=== PATIENT | female | born 1935 | race Two or more races ===

== ENCOUNTER 2023-07-01 12:27 | Inpatient (IN) | payer MEDICARE, OTHER ==
[~2023-07-01] VITALS: Ht 160 cm; Wt 68.7 kg
[2023-07-01] MEDS ORDERED: NITROGLYCERIN OINT 1 GM PACKET TP ONE ×2 (12:45→13:00)
[2023-07-01] MEDS ORDERED: ASPIRIN 81 MG TAB.CHEW PO ONE (12:45)
[2023-07-01] MEDS ORDERED: ASPIRIN 81 MG TAB.CHEW ONE (13:00)
[2023-07-01] MEDS ORDERED: FERR325T28 PO (13:03)
[2023-07-01] MEDS ORDERED: ASPI81TA31 PO (13:03)
[2023-07-01] MEDS ORDERED: ALPR0.5T8 PO (13:03)
[2023-07-01] MEDS ORDERED: FURO-151 PO (13:03)
[2023-07-01] MEDS ORDERED: METO25TA6 PO (13:03)
[2023-07-01] MEDS ORDERED: DEXL60CA3 PO (13:03)
[2023-07-01] MEDS ORDERED: RANO10005 PO (13:03)
[2023-07-01] MEDS ORDERED: LOSA50TA39 PO (13:03)
[2023-07-01] MEDS ORDERED: METF-440 PO (13:03)
[2023-07-01] MEDS ORDERED: DAPA10TA PO (13:03)
[2023-07-01] MEDS ORDERED: ATOR40TA PO (13:03)
[2023-07-01] MEDS ORDERED: MEMA10TA PO (13:03)
[2023-07-01] MEDS ORDERED: CLOP75TA15 PO (13:03)
[2023-07-01 13:04] LABS: BASOPHILS % (AUTO) 0.3 % (0.0-2.0); EOSINOPHILS # (AUTO) 0.1 K/uL (0.0-0.7); EOSINOPHILS % (AUTO) 0.7 % (0.0-7.0); HEMATOCRIT 27.1 % (31.2-41.9); HEMOGLOBIN 9.1 g/dL (10.9-14.3); LYMPHOCYTES # (AUTO) 0.7 K/uL (0.8-4.8); LYMPHOCYTES % (AUTO) 4.7 % (20.5-51.5); MEAN CORPUSCULAR HEMOGLOBIN 31.6 uug (24.7-32.8); MEAN CORPUSCULAR HGB CONC 34 g/dL (32.3-35.6); MEAN CORPUSCULAR VOLUME 94.2 fL (75.5-95.3); MONOCYTES # (AUTO) 1.5 K/uL (0.1-1.30); MONOCYTES % (AUTO) 10.3 % (0.0-11.0); NEUTROPHILS # (AUTO) 12.4 K/uL (1.8-8.9); PLATELET COUNT (AUTO) 237 K/uL (179-408); RED BLOOD CELL COUNT(AUTO) 2.88 MIL/uL (3.63-4.92); WHITE BLOOD COUNT (AUTO) 14.8 K/uL (3.8-11.8)
[2023-07-01] MEDS ORDERED: FUROSEMIDE 40 MG/4 ML VIAL IV ONE (13:15)
[2023-07-01] MEDS ORDERED: FUROSEMIDE 40 MG/4 ML VIAL ONE (13:24)
[2023-07-01 13:30] LABS: CALCIUM 8.7 mg/dL (8.5-10.1); CARBON DIOXIDE 27 mmol/L (21-32); CHLORIDE 97 mmol/L (98-107); GLUCOSE 207 mg/dL (74-106); POTASSIUM 4.8 mmol/L (3.5-5.1); SODIUM SERUM 130 mmol/L (136-145); UREA NITROGEN, BLOOD 54 mg/dL (7-18)
[2023-07-01 13:35] LABS: DIFFERENTIAL COMMENT 1
[2023-07-01 13:40] LABS: ALANINE AMINOTRANSFERASE 29 U/L (14-59); ALBUMIN 3.1 g/dL (3.4-5.0); ALKALINE PHOSPHATASE 41 U/L (50-136); ASPARTATE AMINOTRANSFERASE 26 U/L (15-37); BILIRUBIN,DIRECT 0.4 mg/dL (0.0-0.2); BILIRUBIN,TOTAL 0.7 mg/dL (0.2-1.0); NT-PRO BNP 9891 pg/mL (0-125); TOTAL PROTEIN, SERUM 6.8 g/dL (6.4-8.2)
[2023-07-01] MEDS ORDERED: HYDROCODONE/APAP 5-325MG TABLET PO PRN (14:45)
[2023-07-01] MEDS ORDERED: DEXTROSE 50% 50 ML DISP.SYRIN IV PRN (14:45)
[2023-07-01] MEDS ORDERED: ACETAMINOPHEN 325 MG TABLET PO PRN (14:45)
[2023-07-01] MEDS ORDERED: MORPHINE SULFATE 2 MG/1 ML DISP.SYRIN IV PRN (14:45)
[2023-07-01] MEDS ORDERED: ONDANSETRON 4 MG/2 ML VIAL IV PRN (14:45)
[2023-07-01] MEDS ORDERED: MAGNESIUM HYDROXIDE 30 ML LIQUID UDC PO PRN (14:45)
[2023-07-01 15:08] LABS: *BILIRUBIN,URIN NEGATIVE (NEGATIVE); *BLOOD, URINE NEGATIVE (NEGATIVE); *CLARITY,URINE CLEAR (CLEAR); *COLOR,URINE YELLOW (YELLOW); *KETONES,URINE NEGATIVE (NEGATIVE); *PROTEIN,URINE NEGATIVE (NEGATIVE); *UROBILINOGEN,URINE 0.2 E.U./dl (NORMAL); LEUKOCYTE ESTERASE ,URINE NEGATIVE (NEGATIVE); NITRITE, URINE NEGATIVE (NEGATIVE); PH,URINE 5.5 (5.0-8.0)
[2023-07-01 15:11] LABS: UGLUCOSE 2+ (NEGATIVE)
[2023-07-01 16:23] LABS: BACTERIA,URINE FEW /HPF (NONE SEEN); RBC,URINE 0-3 /HPF (0-3); SQUAMOUS EPITHELIAL CELL,UR FEW /HPF (NONE SEEN); WBC,URINE 0-3 /HPF (0-3)
[2023-07-01] MEDS: BLOOD SUGAR DIAGNOSTIC 1 EACH STRIP VI SCH ×2 (16:43→22:00)
[2023-07-01] MEDS ORDERED: INSULIN REGULAR, HUMAN 300 UNIT/3 ML VIAL ONE (16:46)
[2023-07-01] MEDS: INSULIN REGULAR, HUMAN 300 UNIT/3 ML VIAL SQ PRN ×2 (16:59→22:01)
[2023-07-01] MEDS ORDERED: METOPROLOL TARTRATE 25 MG TABLET PO SCH (17:00)
[2023-07-01] MEDS ORDERED: MEMANTINE HCL 10 MG TABLET PO SCH (17:00)
[2023-07-01] MEDS ORDERED: METOPROLOL TARTRATE 50 MG TABLET ONE (17:14)
[2023-07-01] MEDS ORDERED: REMEDY ESSENTIAL ZINC PASTE 113 GM TP PRN (21:45)
[2023-07-01 22:05] VITALS: BP 164/67; TEMP 98.4; O2SAT 94
[2023-07-01] MEDS: ATORVASTATIN 40 MG TABLET PO SCH (22:12)
[2023-07-01 22:44] VITALS: BP 151/43; O2SAT 93
[2023-07-02 04:10] VITALS: BP 175/65; TEMP 98.3; O2SAT 98
[2023-07-02] MEDS: NITROGLYCERIN 0.4 MG/TAB BOTTLE SL PRN ×3 (04:39→04:49)
[2023-07-02 05:36] LABS: BASOPHILS # (AUTO) 0.1 K/UL (0.0-0.2); BASOPHILS % (AUTO) 0.7 % (0.0-2.0); EOSINOPHILS % (AUTO) 0.2 % (0.0-7.0); LYMPHOCYTES # (AUTO) 0.8 K/uL (0.8-4.8); LYMPHOCYTES % (AUTO) 7.1 % (20.5-51.5); MEAN CORPUSCULAR HEMOGLOBIN 31.8 uug (24.7-32.8); MEAN CORPUSCULAR HGB CONC 34 g/dL (32.3-35.6); MEAN CORPUSCULAR VOLUME 92.6 fL (75.5-95.3); MONOCYTES # (AUTO) 1.2 K/uL (0.1-1.30); MONOCYTES % (AUTO) 10.6 % (0.0-11.0); NEUTROPHILS # (AUTO) 8.9 K/uL (1.8-8.9); NEUTROPHILS % (AUTO) 81.4 % (38.5-71.5); PLATELET COUNT (AUTO) 228 K/uL (179-408); RED BLOOD CELL COUNT(AUTO) 2.81 MIL/uL (3.63-4.92); RED CELL DISTRIBUTION WIDTH 14.9 % (12.3-17.7)
[2023-07-02 05:45] LABS: DIFFERENTIAL COMMENT 1
[2023-07-02 05:51] LABS: CALCIUM 8.3 mg/dL (8.5-10.1); CARBON DIOXIDE 29 mmol/L (21-32); CHLORIDE 97 mmol/L (98-107); CHOLESTEROL 124 mg/dL (<200); CREATININE 1.8 mg/dL (0.6-1.3); GLUCOSE 163 mg/dL (74-106); HDL CHOLESTEROL 53 mg/dL (40-60); MAGNESIUM 2.1 mg/dL (1.8-2.4); PHOSPHOROUS 4.5 mg/dL (2.5-4.9); POTASSIUM 3.9 mmol/L (3.5-5.1); SODIUM SERUM 135 mmol/L (136-145); TRIGLYCERIDES 71 MG/DL (30-150); UREA NITROGEN, BLOOD 52 mg/dL (7-18)
[2023-07-02 06:07] LABS: THYROID STIMULATING HORMONE 1.031 mIU/mL (0.358-3.740)
[2023-07-02] MEDS: PANTOPRAZOLE SODIUM 40 MG TABLET.DR PO SCH (06:09)
[2023-07-02] MEDS: METOPROLOL TARTRATE 25 MG TABLET PO SCH ×2 (06:10→20:28)
[2023-07-02] MEDS: BLOOD SUGAR DIAGNOSTIC 1 EACH STRIP VI SCH ×4 (06:37→20:28)
[2023-07-02] MEDS ORDERED: ASPIRIN 81 MG TAB.CHEW PO SCH (09:00)
[2023-07-02] MEDS ORDERED: DAPAGLIFLOZIN PROPANEDIOL 5 MG TABLET PO SCH (09:00)
[2023-07-02] MEDS: ASPIRIN 81 MG TAB.CHEW PO SCH (09:48)
[2023-07-02] MEDS: FUROSEMIDE 40 MG/4 ML VIAL IV SCH (09:48)
[2023-07-02] MEDS: CLOPIDOGREL 75 MG TABLET PO SCH (09:48)
[2023-07-02 11:33] VITALS: BP 151/49; TEMP 98.1; O2SAT 94
[2023-07-02] MEDS ORDERED: LOSARTAN POTASSIUM 25 MG TABLET PO SCH (12:00)
[2023-07-02] MEDS: INSULIN REGULAR, HUMAN 300 UNIT/3 ML VIAL SQ PRN ×3 (12:08→20:29)
[2023-07-02 15:48] VITALS: BP 150/51; TEMP 98.2; O2SAT 98
[2023-07-02] MEDS: LOSARTAN POTASSIUM 50 MG TABLET PO SCH (17:41)
[2023-07-02 20:00] VITALS: BP 98/65; TEMP 97.8; O2SAT 99
[2023-07-02] MEDS: ATORVASTATIN 40 MG TABLET PO SCH (20:28)
[2023-07-03] VITALS: BP 150/47; TEMP 98.4; O2SAT 98
[2023-07-03 04:00] VITALS: BP 149/65; TEMP 97.7; O2SAT 98
[2023-07-03] MEDS: PANTOPRAZOLE SODIUM 40 MG TABLET.DR PO SCH (06:35)
[2023-07-03] MEDS: BLOOD SUGAR DIAGNOSTIC 1 EACH STRIP VI SCH ×4 (06:35→21:00)
[2023-07-03 07:35] LABS: CALCIUM 8.8 mg/dL (8.5-10.1); CARBON DIOXIDE 33 mmol/L (21-32); CHLORIDE 100 mmol/L (98-107); CREATININE 1.8 mg/dL (0.6-1.3); GLUCOSE 182 mg/dL (74-106); POTASSIUM 3.7 mmol/L (3.5-5.1); SODIUM SERUM 138 mmol/L (136-145); UREA NITROGEN, BLOOD 51 mg/dL (7-18)
[2023-07-03 10:00] VITALS: BP 164/46; TEMP 97; O2SAT 98
[2023-07-03] MEDS: FUROSEMIDE 40 MG/4 ML VIAL IV SCH (10:01)
[2023-07-03] MEDS: METOPROLOL TARTRATE 25 MG TABLET PO SCH (10:02)
[2023-07-03] MEDS: LOSARTAN POTASSIUM 50 MG TABLET PO SCH ×2 (10:02→17:34)
[2023-07-03] MEDS: CLOPIDOGREL 75 MG TABLET PO SCH (10:02)
[2023-07-03] MEDS: ASPIRIN 81 MG TAB.CHEW PO SCH (10:02)
[2023-07-03] MEDS: DAPAGLIFLOZIN PROPANEDIOL 5 MG TABLET PO SCH (10:03)
[2023-07-03] MEDS: INSULIN REGULAR, HUMAN 300 UNIT/3 ML VIAL SQ PRN ×3 (10:08→17:33)
[2023-07-03] MEDS: RANOLAZINE 500 MG TAB.ER.12H PO SCH ×2 (12:19→22:21)
[2023-07-03] MEDS ORDERED: MEMA5TAB42 PO (14:59)
[2023-07-03] MEDS ORDERED: CARV12.5 PO (15:04)
[2023-07-03] MEDS ORDERED: POTA10CA43 PO (15:05)
[2023-07-03 20:00] VITALS: BP 157/50; TEMP 98.5; O2SAT 99
[2023-07-03 22:19] VITALS: O2SAT 99
[2023-07-03] MEDS: ATORVASTATIN 40 MG TABLET PO SCH (22:20)
[2023-07-03] MEDS: CARVEDILOL 12.5 MG TABLET PO SCH (22:21)
[2023-07-04] VITALS (7 sets, daily range): BP systolic 110–152; BP diastolic 32–59; TEMP 97–98.7; O2SAT 94–99
[2023-07-04 06:21] LABS: CALCIUM 8.6 mg/dL (8.5-10.1); CARBON DIOXIDE 30 mmol/L (21-32); CHLORIDE 100 mmol/L (98-107); CREATININE 1.7 mg/dL (0.6-1.3); GLUCOSE 174 mg/dL (74-106); POTASSIUM 3.9 mmol/L (3.5-5.1); SODIUM SERUM 137 mmol/L (136-145); UREA NITROGEN, BLOOD 54 mg/dL (7-18)
[2023-07-04] MEDS: BLOOD SUGAR DIAGNOSTIC 1 EACH STRIP VI SCH ×4 (06:49→21:47)
[2023-07-04] MEDS: INSULIN REGULAR, HUMAN 300 UNIT/3 ML VIAL SQ PRN ×3 (06:55→17:28)
[2023-07-04] MEDS: PANTOPRAZOLE SODIUM 40 MG TABLET.DR PO SCH (07:07)
[2023-07-04] MEDS: CARVEDILOL 12.5 MG TABLET PO SCH ×2 (09:38→21:39)
[2023-07-04] MEDS: ASPIRIN 81 MG TAB.CHEW PO SCH (09:38)
[2023-07-04] MEDS: MEMANTINE HCL 5 MG TABLET PO SCH (09:38)
[2023-07-04] MEDS: FUROSEMIDE 40 MG/4 ML VIAL IV SCH (09:38)
[2023-07-04] MEDS: LOSARTAN POTASSIUM 50 MG TABLET PO SCH ×2 (09:38→17:09)
[2023-07-04] MEDS: RANOLAZINE 500 MG TAB.ER.12H PO SCH ×2 (09:39→21:39)
[2023-07-04] MEDS: DAPAGLIFLOZIN PROPANEDIOL 5 MG TABLET PO SCH (09:39)
[2023-07-04] MEDS: CLOPIDOGREL 75 MG TABLET PO SCH (09:39)
[2023-07-04] MEDS: ATORVASTATIN 40 MG TABLET PO SCH (21:39)
[2023-07-05 00:21] VITALS: BP 157/42; TEMP 98.4; O2SAT 96
[2023-07-05 04:05] VITALS: BP 143/49; TEMP 98.4; O2SAT 96
[2023-07-05] MEDS: PANTOPRAZOLE SODIUM 40 MG TABLET.DR PO SCH (06:18)
[2023-07-05] MEDS: BLOOD SUGAR DIAGNOSTIC 1 EACH STRIP VI SCH ×2 (06:23→11:47)
[2023-07-05 06:29] LABS: CALCIUM 8.3 mg/dL (8.5-10.1); CARBON DIOXIDE 30 mmol/L (21-32); CHLORIDE 102 mmol/L (98-107); CREATININE 1.9 mg/dL (0.6-1.3); GLUCOSE 166 mg/dL (74-106); POTASSIUM 3.9 mmol/L (3.5-5.1); SODIUM SERUM 139 mmol/L (136-145); UREA NITROGEN, BLOOD 58 mg/dL (7-18)
[2023-07-05] MEDS: INSULIN REGULAR, HUMAN 300 UNIT/3 ML VIAL SQ PRN ×2 (08:02→11:49)
[2023-07-05] MEDS: CLOPIDOGREL 75 MG TABLET PO SCH (08:23)
[2023-07-05] MEDS: MEMANTINE HCL 5 MG TABLET PO SCH (08:23)
[2023-07-05] MEDS: ASPIRIN 81 MG TAB.CHEW PO SCH (08:23)
[2023-07-05] MEDS: CARVEDILOL 12.5 MG TABLET PO SCH (08:24)
[2023-07-05] MEDS: FUROSEMIDE 40 MG/4 ML VIAL IV SCH (08:24)
[2023-07-05] MEDS: DAPAGLIFLOZIN PROPANEDIOL 5 MG TABLET PO SCH (08:37)
[2023-07-05] MEDS: RANOLAZINE 500 MG TAB.ER.12H PO SCH (08:37)
[2023-07-05] MEDS ORDERED: VALSARTAN 160 MG TABLET PO SCH (09:00)
[2023-07-05 11:07] LABS: IRON, SERUM 48 ug/dL (50-175)
[2023-07-05 11:20] LABS: FERRITIN 128 ng/mL (8-252)
[2023-07-05 11:39] VITALS: BP 137/47; TEMP 98.3; O2SAT 99
[2023-07-05] MEDS ORDERED: SACU1TAB PO (12:22)
== END 2023-07-05 14:00 | disposition home health service (06) | DRG 280 ==
LOC: ER 12:27 → TELE3 21:09
PROVIDERS: ADMIT Nurse Practitioner Acute Care; ATTEND Nurse Practitioner Acute Care
DX: I13.0 Hypertensive heart and chronic kidney disease with heart failure and stage 1 through stage 4 chronic kidney disease, or unspecified chronic kidney disease (principal); I50.43 Acute on chronic combined systolic (congestive) and diastolic (congestive) heart failure; I21.A1 Myocardial infarction type 2; E87.1 Hypo-osmolality and hyponatremia; N17.9 Acute kidney failure, unspecified; E11.65 Type 2 diabetes mellitus with hyperglycemia; I25.110 Atherosclerotic heart disease of native coronary artery with unstable angina pectoris; Z95.1 Presence of aortocoronary bypass graft; K21.9 Gastro-esophageal reflux disease without esophagitis; E78.5 Hyperlipidemia, unspecified; N18.9 Chronic kidney disease, unspecified; I27.20 Pulmonary hypertension, unspecified; E11.22 Type 2 diabetes mellitus with diabetic chronic kidney disease; Z79.84 Long term (current) use of oral hypoglycemic drugs; Z79.82 Long term (current) use of aspirin; Z79.02 Long term (current) use of antithrombotics/antiplatelets; Z79.899 Other long term (current) drug therapy; D64.9 Anemia, unspecified
CPT/HCPCS: 36415; 71045; 76770; 83550; 83605; 83735; 84100; 84443; 84484; 85025; 85730; 87040; 93005; 93307; A4606; A4663; G0378; J1815; J1940; J2270; J7040